=== PATIENT | male | born 1965 | race Caucasian/White ===

== ENCOUNTER 2021-07-04 16:33 | Emergency (ER) | payer OTHER ==
[~2021-07-04] VITALS: Ht 177.8 cm; Wt 132.7 kg
[2021-07-04 22:19] VITALS: BP 107/60
[2021-07-05] MEDS ORDERED: CYCLOBENZAPRINE 10MG TABLET PO ONE (01:35)
[2021-07-05] MEDS ORDERED: CYCL-707 PO (01:35)
== END 2021-07-05 02:04 | disposition home or self-care (01) ==
LOC: M ED 16:33
DX: R22.43 Localized swelling, mass and lump, lower limb, bilateral (principal); E11.40 Type 2 diabetes mellitus with diabetic neuropathy, unspecified; I10 Essential (primary) hypertension; Z79.899 Other long term (current) drug therapy